=== PATIENT | female | born 1980 | race Caucasian/White ===

== ENCOUNTER 2017-06-02 06:43 | Emergency (ER) | payer OTHER, MEDICAID ==
[~2017-06-02] VITALS: Ht 157.5 cm; Wt 63.5 kg
[2017-06-02 10:00] VITALS: BP 102/58
== END 2017-06-02 10:05 | disposition home or self-care (01) ==
LOC: EMS 06:44
DX: S13.4XXA Sprain of ligaments of cervical spine, initial encounter (principal); S00.83XA Contusion of other part of head, initial encounter; V49.9XXA Car occupant (driver) (passenger) injured in unspecified traffic accident, initial encounter; Y93.89 Activity, other specified; Y92.89 Other specified places as the place of occurrence of the external cause; Y99.8 Other external cause status
CPT/HCPCS: 81025; 99283

== ENCOUNTER 2021-05-23 09:08 | Emergency (ER) | payer MEDICAID, OTHER ==
[~2021-05-23] VITALS: Ht 157.5 cm; Wt 77.2 kg
[2021-05-23 09:11] VITALS: BP 135/100
[2021-05-23 11:52] LABS: BASOPHILS % (AUTO) 0.3 % (0.0-2.0); EOSINOPHILS % (AUTO) 0.2 % (1.0-6.0); HEMATOCRIT 36.7 % (36-46); HEMOGLOBIN 12.1 g/dL (12.0-16.0); LYMPHOCYTES # (AUTO) 2.5 K/uL (1.0-4.8); LYMPHOCYTES % (AUTO) 36.3 % (22.0-44.0); MEAN CORPUSCULAR HEMOGLOBIN 27.4 pg (26.0-34.0); MEAN CORPUSCULAR HGB CONC 33.1 G/dL (31.0-37.0); MEAN CORPUSCULAR VOLUME 83 fL (80-100); MONOCYTES # (AUTO) 0.5 K/uL (0.1-1.0); MONOCYTES % (AUTO) 6.7 % (2.0-9.0); NEUTROPHILS # (AUTO) 3.9 K/uL (1.8-7.7); NEUTROPHILS % (AUTO) 56.5 % (40.0-70.0); PLATELET COUNT (AUTO) 395 K/uL (150-450); RED BLOOD CELL COUNT(AUTO) 4.43 MIL/uL (4.00-5.20); RED CELL DISTRIBUTION WIDTH 14.4 % (11.5-14.5)
[2021-05-23 12:06] LABS: ANION GAP 13 mmol/L (8-16); CALCIUM, TOTAL 9.5 mg/dL (8.8-10.5); CARBON DIOXIDE 26 mmol/L (22-29); CHLORIDE 103 mmol/L (98-107); CREATININE 0.73 mg/dL (0.60-1.30); GLOMERULAR FILTR. RATE CALC > 60 mL/min (>60); GLUCOSE,RANDOM 100 mg/dL (70-110); SODIUM SERUM 142 mmol/L (136-145); UREA NITROGEN, BLOOD 5 mg/dL (7-18)
[2021-05-23 12:11] LABS: SALICYLATE 0.9 mg/dL (2.8-20.0)
[2021-05-23 12:20] LABS: ACETAMINOPHEN 10 mcg/mL (10-30); ALANINE AMINOTRANSFERASE 39 U/L (12-78); ALBUMIN 4.4 g/dL (3.4-5.0); ALKALINE PHOSPHATASE 83 U/L (46-116); ASPARTATE AMINOTRANSFERASE 25 U/L (15-37); BILIRUBIN,TOTAL 0.5 mg/dL (0.1-1.0); HCG,QUANTITATIVE < 1 mIU/mL (0-6); TOTAL PROTEIN, SERUM 8.5 g/dL (6.4-8.2)
== END 2021-05-23 14:00 | disposition home or self-care (01) ==
LOC: EMS 09:12
DX: F43.21 Adjustment disorder with depressed mood (principal)
CPT/HCPCS: 36415; 80053; 84702; 85025; 99283; G0480; G0481

== ENCOUNTER 2024-03-30 09:38 | Emergency (ER) | payer OTHER ==
[~2024-03-30] VITALS: Ht 157.5 cm; Wt 64.0 kg
[2024-03-30 09:42] VITALS: TEMP 98
[2024-03-30] MEDS: ACETAMINOPHEN 325 MG TABLET PO ONE (10:34)
[2024-03-30] MEDS: IBUPROFEN 400 MG TABLET PO ONE (10:35)
[2024-03-30 12:12] VITALS: BP 128/88; PULSE 70; RESP 16; O2SAT 100
== END 2024-03-30 12:40 | disposition home or self-care (01) ==
LOC: EMS 09:38
DX: M75.92 Shoulder lesion, unspecified, left shoulder (principal); M79.602 Pain in left arm; W01.0XXA Fall on same level from slipping, tripping and stumbling without subsequent striking against object, initial encounter; Y93.89 Activity, other specified; Y92.89 Other specified places as the place of occurrence of the external cause; Y99.0 Civilian activity done for income or pay
CPT/HCPCS: 99283